=== PATIENT | male | born 1975 | race Caucasian/White ===

== ENCOUNTER 2017-01-06 07:36 | Emergency (ER) | payer OTHER ==
[2017-01-06 07:48] VITALS: BMI 24.4
[2017-01-06] MEDS ORDERED: BUPIVACAINE 0.5% 30 ML VIAL INF ONE (07:53)
[2017-01-06] MEDS ORDERED: CEPHALEXIN 500 MG CAP PO ONE (08:12)
--- NOTE | 2017-01-06 08:15 | EDPRACDOC ---
<Trish Hays E - Last Filed: 01/06/17 09:27> - General Information Information Source: Patient, Media Account Executive Mode of Arrival: Car - History of Present Illness Onset: SECURITY CONSULTANT HPI: PT SAID THAT HE WAS AT WORK THIS MORNING AND WAS DRIVING SOME FURNITURE. THE PT SAID THAT HE WAS DRIVING WITH HIS RIGHT HAND AND HOLDING THE FURNITURE WITH HIS LEFT HAND. PT SAID THE FURNITURE SLIPPED AND HE TRIED TO CATCH IT. HIS LEFT 3RD AND 4TH FINGER WERE INJURED. Location: Reports: Left, 3rd Finger, 4th Finger Dominant Hand: Right Mechanism: Reports: Metal Cut Associated Signs & Symptoms: Reports: None <Kathy Harp - Last Filed: 01/06/17 09:34> - General Information Chief Complaint: Wound Stated Complaint: FINGER INJURY Time Seen by Provider: 01/06/17 07:52 Home Medications: Home Medications Cephalexin Monohydrate [Keflex] 500 mg PO Q6H #28 cap 01/06/17 Oxycodone HCl [Roxicodone] 5 mg PO Q6H #15 tablet 01/06/17 Allergies/Adverse Reactions: Allergies Allergy/AdvReac Type Severity Reaction Status Date / Time No Known Allergies Allergy Verified 01/06/17 08:07 ED Past Medical History - Patient Medical History Psychological History: Reports: Depression Surgical History: Reports: No Significant History - Social Medical History Smoking Status: Never smoker ETOH: None Substance Abuse: None Lives In: Home <Kathy Harp - Last Filed: 01/06/17 09:34> EDM Review of Systems - Review of Systems ROS Negative Except as Marked: Yes All systems reviewed and were negative except as marked Musculoskeletal: Other (FINGER) Integumentary: Other (LAC) <Katyh Harp - Last Filed: 01/06/17 09:34> - Physical Exam Last recorded Vital Signs: Last Vital Signs Temp 98.3 F 01/06/17 09:00 Pulse 60 01/06/17 09:00 Resp 18 01/06/17 09:00 BP 135/75 01/06/17 09:00 Pulse Ox 98 01/06/17 09:00 Oxygen Pulse Oxygen Saturation 98 O2 Device Room Air Oxygen Flow Rate Fraction of Inspired Oxygen ( FIO2) <Trish Hays - Last Filed: 01/06/17 09:27> - Physical Exam Constitutional: Alert (Awake), No apparent distress Oriented to: Time, Person, Place Last recorded Vital Signs: Last Vital Signs Temp 97.4 F L 01/06/17 07:39 Pulse 68 01/06/17 07:39 Resp 18 01/06/17 07:39 BP 130/64 01/06/17 07:39 Pulse Ox 99 01/06/17 07:39 Oxygen Pulse Oxygen Saturation 99 O2 Device Oxygen Flow Rate Fraction of Inspired Oxygen ( FIO2) - HEENT Head: Normal ( normocephalic) Eye Exam: Normal (PERRL, EOMI, Sclera white) Oropharynx: Normal (Pharynx:Moist without exudate,Gums-no swelling) ENT EAC: Normal TMJ: Normal Nose: No Symptoms Reported (septum midline) Neck: Normal (FROM, trachea at midline) - Respiratory/Cardiovascular Respiratory: Normal - CTA (BBS clear to auscultation without adventitious sounds ) Cardiovascular: Normal (RRR without murmur, gallop or rub) - GI Auscultation: Normal (NABS) Palpation: Normal (Soft,No rebound or guarding, non distended) Tenderness: Non tender Rueda's Sign: Negative - Musculoskeletal Back: Normal Extremities: Other (LEFT 4TH FINGER WITH FINGERNAIL AVULSED) Musculoskeletal Comment: TENDERNESS TO DISTAL 3RD AND 4TH FINGERS - Integumentary Skin: Normal, Warm, Dry Lymphatics: Normal (no adenopathy) - Neurologic Memory Impaired: Normal Motor Function: Normal (Normal tone, Pulses 2+ No cyanosis or edema, FROM) Cranial Nerve: Normal (CN II-X11 intact sensation, strength 5/5) Cerebellar: Normal Mood Description: Normal Thought: Coherent Perception: Normal <Kathy Harp - Last Filed: 01/06/17 09:34> ED Procedures - Suture/Laceration Suture #1 Left Distal Finger Wound Length (cm): 1 Wound's Depth, Shape: nail-avulsed Wound Explored: clean Irrigated w/ Saline (ccs): 100 Betadine Prep?: Yes Anesthesia: 1% Lidocaine, 0.25% Sensorcaine Volume Anesthetic (ccs): 5 Wound Repaired With: Sutures Suture Size/Type: 4:0, nylon Number of Sutures: 2 (simple) Sterile Dressing Applied?: Yes Splint Applied?: Yes (finger splint) - Splinting 2nd splint Location: 3rd finger Pre-Made Type: finger splint fold over Splint: distal finger Pre-Proc Neuro Vasc Exam: normal Post-Proc Neuro Vasc Exam: normal 1st splint Location: 4th finger Pre-Made Type: finger splint fold over Splint: finger splint Pre-Proc Neuro Vasc Exam: normal Post-Proc Neuro Vasc Exam: normal <Trish Hays E - Last Filed: 01/06/17 09:27> - Diagnostic Imaging Other Image interpreted by: Radiologist FINGER: Comminuted open fracture of the distal phalanx of the left fourth digit noted. Subtle fracture of the distal phalanx of the left third digit cannot be excluded. <Kathy Harp C - Last Filed: 01/06/17 09:34> <Trish Hays E - Last Filed: 01/06/17 09:27> Decision Time to Discharge: 09:33 - Departure Yes I personally saw and evaluated the patient. Disposition: Home Education/Counseling Given To: Patient Education/Counseling Given Regarding: Diagnosis, Treatment, Follow Up <Kathy Harp C - Last Filed: 01/06/17 09:34> - Departure Condition: Fair Final Diagnosis: OPEN FRACTURE DISTAL LEFT 4TH PHALANX, DISTAL LEFT 3RD PHALANX FRACTURE, Laceration - injury Instructions: Finger Fracture (ED), Laceration (ED) Referrals: None,No Provider [Primary Care Provider] - One Week Christopher Lyman MD [Staff Physician] - One Week Prescriptions: New Cephalexin Monohydrate [Keflex] 500 mg PO Q6H #28 cap Oxycodone HCl [Roxicodone] 5 mg PO Q6H #15 tablet Additional Instructions: SUTURES TO BE REMOVED IN 7 TO 10 DAYS
--- NOTE | 2017-01-06 08:17 | DIRPT ---
CLINICAL DATA: Injury. Fourth finger pain. EXAM: LEFT FINGER(S) - 2+ VIEW COMPARISON: None. FINDINGS: Comminuted open fracture of the distal phalanx of the left fourth digit noted. Subtle fracture of the distal phalanx of the left third digit cannot be excluded . IMPRESSION: Comminuted open fracture of the distal phalanx of the left fourth digit noted. Subtle fracture of the distal phalanx of the left third digit cannot be excluded. Electronically Signed By: Jesús Blackwood On: 01/06/2017 08:15
[2017-01-06] MEDS ORDERED: LIDOCAINE 1% 2 ML (METHYLPARABEN FREE) ONE (08:48)
[2017-01-06] MEDS ORDERED: LIDOCAINE 1% 5 ML (METHYLPARABEN FREE) ONE (08:48)
[2017-01-06 09:01] VITALS: TEMP 98.3
[2017-01-06] MEDS ORDERED: LIDOCAINE 1% 5 ML (METHYLPARABEN FREE) INF ONE (09:35)
[2017-01-06] MEDS ORDERED: DIPHTHERIA AND TETANUS (ADULT) 0.5 ML SYR IM ONE (09:41)
[2017-01-06 10:07] VITALS: BP 120/74; PULSE 62
== END 2017-01-06 10:05 | disposition home or self-care (01) ==
LOC: ED 07:36
DX: S62.633B Displaced fracture of distal phalanx of left middle finger, initial encounter for open fracture (principal); S62.635A Displaced fracture of distal phalanx of left ring finger, initial encounter for closed fracture; X58.XXXA Exposure to other specified factors, initial encounter; Y93.89 Activity, other specified
CPT/HCPCS: 12001; 29130; 73140; 90471; 90714; 99283; J3490; J2001